=== PATIENT | male | born 1935 | race Caucasian/White ===

== ENCOUNTER → 2017-04-22 | Outpatient (CLI) | payer MEDICARE, OTHER ==
[~2017-04-22] MED LIST: CHOL5000 PO; DUTA0.5C PO; LOSA1TAB17 PO; OMEG1CAP6 PO; OMEP40CA6 PO; TAMS0.4C2 PO; VITA1TAB14 PO; [UNRECOGNIZED DRUG - CODE] PO
== END | disposition home or self-care (01) ==
LOC: CFH 11:39 → EDSTATUS 12:30
PROVIDERS: ATTEND Internal Medicine
DX: R16.0 Hepatomegaly, not elsewhere classified (principal)
CPT/HCPCS: 76705

== ENCOUNTER → 2021-04-02 | Outpatient (CLI) | payer MEDICARE, OTHER ==
[~2021-04-02] MED LIST changes: +AMLO5TAB4 PO; +ATOR40TA78 PO; +CLOP75TA PO; -LOSA1TAB17 PO; +LOSA1TAB22 PO; +METO25TA35 PO; -OMEP40CA6 PO; +OMEP40CA8 PO; +TRIA0.1218 PO; +VALS1TAB30 PO; -[UNRECOGNIZED DRUG - CODE] PO; +potassium PO
[2021-04-02 13:27] LABS: ALBUMIN 3.7 g/dL (3.4-5.0); ANION GAP 2 mmol/L (5-15); CALCIUM 8.9 mg/dL (8.5-10.1); CHLORIDE 105 mmol/L (98-107)
[2021-04-02 13:30] LABS: ALANINE AMINOTRANSFERASE 22 U/L (12-78); ALKALINE PHOSPHATASE 54 U/L (45-117); BILIRUBIN,TOTAL 0.5 mg/dL (0.2-1.0); CREATININE 1.48 mg/dL (0.7-1.3); TOTAL PROTEIN 7.7 g/dL (6.4-8.2)
== END | disposition home or self-care (01) ==
LOC: STAR 12:07
PROVIDERS: ATTEND Surgery
DX: Z01.818 Encounter for other preprocedural examination (principal); Z20.822 Contact with and (suspected) exposure to COVID-19; I44.0 Atrioventricular block, first degree; I21.29 ST elevation (STEMI) myocardial infarction involving other sites; R94.31 Abnormal electrocardiogram [ECG] [EKG]
CPT/HCPCS: 36415; 80053; 93005; U0003; U0005

== ENCOUNTER 2021-04-08 10:58 | Day surgery (SDC) | payer MEDICARE, OTHER ==
[~2021-04-08] VITALS: Ht 170.2 cm; Wt 76.6 kg
[~2021-04-08 10:58] MED LIST changes: +BUPIVACAINE/PF 0.5% ONE
[2021-04-08] MEDS ORDERED: CHLORHEXIDINE 15 ML UDC ONE (11:23)
[2021-04-08 11:30] VITALS: BP 182/71
[2021-04-08] MEDS ORDERED: LACTATED RINGERS 1,000 ML IV SCH (11:30)
[2021-04-08] MEDS ORDERED: CHLORHEXIDINE 15 ML UDC PO ONE (11:30)
[2021-04-08] MEDS ORDERED: FENTANYL PF 250 MCG/5ML ONE (12:48)
[2021-04-08] MEDS ORDERED: DEXAMETHASONE 4 MG/ML, 1ML ONE (12:49)
[2021-04-08] MEDS ORDERED: PROPOFOL 10 MG/ML, 20ML ONE (12:49)
[2021-04-08] MEDS ORDERED: ONDANSETRON 2MG/ML, 2ML ONE (12:49)
[2021-04-08] MEDS ORDERED: CEFAZOLIN 1,000 MG ONE (12:49)
[2021-04-08] MEDS ORDERED: ROCURONIUM 10 MG/ML,10ML ONE (12:49)
[2021-04-08] MEDS ORDERED: SUGAMMADEX 200 MG/2 ML IVPush ONE (14:13)
[2021-04-08] MEDS ORDERED: HYDR-2214 PO (14:17)
[2021-04-08] MEDS: FENTANYL PF 100 MCG/2ML IV PRN ×2 (14:30→14:42)
[2021-04-08] MEDS ORDERED: FENTANYL PF 100 MCG/2ML ONE (14:31)
[2021-04-08] MEDS ORDERED: OXYcodone 5 MG/5 ML ORAL.SOL UDC ONE (14:31)
[2021-04-08] MEDS: OXYcodone 5 MG/5 ML ORAL.SOL UDC PO PRN ×2 (14:39→15:36)
[2021-04-08] MEDS ORDERED: HYDROmorphone 1 MG/ML, 1ML INJ ONE (14:53)
[2021-04-08] MEDS: HYDROmorphone 2 MG/ML, 1ML IVPush PRN ×2 (14:56→15:10)
[2021-04-08] MEDS ORDERED: PROMETHAZINE 25 MG/ML, 1ML IV PRN (15:00)
[2021-04-08] MEDS ORDERED: HALOPERIDOL 5 MG/ML IV PRN (15:00)
[2021-04-08] MEDS ORDERED: LABETALOL 5MG/ML, 20ML IV PRN (15:00)
[2021-04-08] MEDS ORDERED: hydrALAzine 20 MG/ML, 1ML IV PRN (15:00)
[2021-04-08] MEDS ORDERED: ALBUTEROL SULFATE 2.5 MG/3 ML NPPB PRN (15:00)
[2021-04-08] MEDS ORDERED: ONDANSETRON ODT 4 MG ONE (19:32)
[2021-04-08] MEDS ORDERED: ONDANSETRON ODT 4 MG PO ONE (20:00)
== END 2021-04-08 20:45 | disposition home or self-care (01) ==
LOC: OR 10:58 → OUT 20:45
PROVIDERS: ATTEND Surgery
DX: K43.2 Incisional hernia without obstruction or gangrene (principal); I10 Essential (primary) hypertension; E78.5 Hyperlipidemia, unspecified; I25.10 Atherosclerotic heart disease of native coronary artery without angina pectoris; Z79.02 Long term (current) use of antithrombotics/antiplatelets; Z79.899 Other long term (current) drug therapy; Z87.891 Personal history of nicotine dependence; Z88.0 Allergy status to penicillin; Z95.1 Presence of aortocoronary bypass graft
CPT/HCPCS: 49654; C1781; J0690; J1100; J1170; J2405; J2704; J3010; J7120; Q0162